=== PATIENT | female | born 1980 | race Caucasian/White ===

== ENCOUNTER → 2023-02-02 | Outpatient (CLI) | payer SELFPAY ==
[2023-02-02 10:44] LABS: Absolute Lymphocyte Count 1.07 X10^3/uL (0.83-4.51); Absolute Neutrophil Count 2.8 X10^3/uL (2.0-7.7); Basophil# 0.03 X10^3/uL; Basophil% 0.7 % (0-1); Eosinophil# 0.02 X10^3/uL; Eosinophils% 0.5 % (0-5); Hemoglobin 12.4 g/dL (12.0-15.0); Lymphocyte # 1.07 X10^3/ul (0.83-4.51); Lymphocyte % 25.7 % (19-41); Mean Corp Hgb Conc 32.6 g/dL (32-36); Mean Corpuscular Hgb 32.4 pg (27.0-32.0); Mean Corpuscular Volume 99.2 fL (81-99); Mean Platelet Vol. 10.7 fl (6.2-12.0); Monocyte# 0.28 X10^3/uL; Monocyte% 6.7 % (0-10); NRBC Flagged by Analyzer 0 % (0-5); Neutrophil # 2.75 X10^3/uL (2.7-7.7); Neutrophil % 65.9 % (47-70); Platelet Count 165 K/mm3 (150-450); RBC Distribution Width CV 13.2 % (11.6-14.6); RBC Distribution Width SD 47.8 fl (35.1-43.9); Red Blood Count 3.83 M/mm3 (4.2-5.4); White Blood Count 4.2 K/mm3 (4.4-11.0)
[2023-02-02 11:07] LABS: Estradiol 67.2 pg/mL; Follicle Stimulating Hormone 6.7 mIU/mL; Luteinizing Hormone 7.8 mIU/mL; Prolactin 8.4 ng/mL
[2023-02-05 15:08] LABS: Testosterone, % Free 1.14 % (0.50-2.80); Testosterone, Free 0.27 ng/dL (0.10-0.85); Testosterone, Total 24 ng/dL (4-50)
== END | disposition home or self-care (01) ==
LOC: WOBLAB 09:28
PROVIDERS: Visit Provider Nurse Practitioner Women's Health
DX: N93.9 Abnormal uterine and vaginal bleeding, unspecified (principal)
CPT/HCPCS: 36415; 82670; 83001; 83002; 84146; 84402; 84403; 84439; 84443; 85025

== ENCOUNTER → 2023-02-23 | Outpatient (CLI) | payer SELFPAY ==
--- NOTE | 2023-02-23 13:50 | CER_PTH ---
PATIENT: OXANA DELGADO [facility][id number] AGE/SX: 42/F ROOM: RE02/23/[address]: SILVANO Flores : 1980 BED: DIS: 02/23/2023 SPEC #: [id number] RECD: 02/23/23 14:20 STATUS: TAAT PAIGE #: [id number] KYLE: 02/23/23 13:[address]: Isabelle Velazquez DEPT: SURGICAL PATHOLOGY RECD BY: Dontae [place] Tissues: POLYP Procedures: Surgery Specimen Level IV HEADER OPERATION: Polypectomy PRE-OP DIAGNOSIS: Cervical polyp TISSUE SUBMITTED: Cervical polyp MICROSCOPIC DIAGNOSIS Cervical polyp, polypectomy: Fragments of benign inflamed endocervical polyp. SJ:william 02/25/2023 MICROSCOPIC DESCRIPTION Slides are reviewed. GROSS DESCRIPTION Received in fixative is one container labeled with the patient's name and designated cervical polyp. The specimen consists of two irregular fragments of decker-pink, congested, polypoid tissue that in aggregate measure 2.0 x 1.5 x 0.3 cm. Multiple fragments of hemorrhagic soft tissue are also noted measuring in aggregate 1.0 x 0.5 x 0.1 cm. The entire specimen is submitted in one cassette. / SJ:rg 02/24/2023 TC:3 CPT: 37499
== END | disposition home or self-care (01) ==
LOC: LABSPEC 14:15
PROVIDERS: Visit Provider Nurse Practitioner Women's Health
DX: N84.1 Polyp of cervix uteri (principal)
CPT/HCPCS: 88305